=== PATIENT | male | born 1950 | race Caucasian/White ===

== ENCOUNTER 2016-09-22 10:19 | Day surgery (SDC) | payer MEDICARE, BC ==
[~2016-09-22 10:19] MED LIST: RINGERS SOLUTION,LACTATED 1,000 ML IV PRN
--- OUTSIDE RECORDS SUMMARY | 2016-09-22 10:22 | XMS REPORT | Continuity of Care Document ---
:1950 Author Organization [facility] ([facility]) Address [address] [place] [address] Phone [phone] Care Team Providers Name Role Phone Luis Dhillon Primary Care Provider [phone] Source Comments This disclosure is being made pursuant to the Care Everywhere program, applicable federal and state laws, and may not contain all informaitonavailable regarding this patient.[facility] ([facility]) Active Allergies and Adverse Reactions Allergen Noted Date Severity Reactions Comments Iodinated Contrast Media - Oral And Iv Dye 01/28/2015 Anaphylaxis Current Medications Prescription Sig. Disp. Refills Start Date End Date Status AMOXICILLIN 500 mg capsule 01/10/2015 Active CLONAZEPAM 0.5 mg tablet 01/18/2015 Active LYRICA 50 mg capsule 01/12/2015 Active LISINOPRIL-HYDROCHLOROTHIA 01/18/2015 Active ZIDE 20-12.5 mg per tablet DOXAZOSIN 4 mg tablet 01/18/2015 Active calcium carbonate (500 mg Take 1 tablet by Active Ca) 1250 mg -vitamin D 200 mouth 2 times unit per tablet daily cyanocobalamin (VITAMIN Take 1,000 mcg by Active B-12) 1,000 mcg tablet mouth daily omega-3 fatty acids 1 gram Take 2 g by mouth Active capsule 2 times daily diltiazem 120 mg ER Take 120 mg by Active capsule mouth daily omeprazole 10 mg extended Take 10 mg by Active release capsule mouth daily pramipexole 0.125 mg Take 0.125 mg by Active tablet mouth at bedtime SENNOSIDES/DOCUSATE SODIUM Active (SENNA PLUS PO) Active Problems Not on file Social History Tobacco Use Types Packs/Day Years Used Date Former Smoker Cigarettes, Cigars 1 10 Smokeless Tobacco: Never Used Tobacco Cessation:Counseling Given: Yes Comments: Alcohol Use Drinks/Week oz/Week Comments No Last Filed Vital Signs Vital Sign Reading Time Taken Blood Pressure 109/71 01/28/2015 10:23 AM CDT Pulse 79 01/28/2015 10:23 AM CDT Temperature 35.4 C (95.7 F) 01/28/2015 10:23 AM CDT Respiratory Rate - - Height 1.753 m (5' 9.02") 01/28/2015 10:23 AM CDT Weight 90.266 kg (199 lb) 01/28/2015 10:23 AM CDT Body Mass Index 29.37 01/28/2015 10:23 AM CDT Oxygen Saturation - - Plan of Care Health Maintenance Due Date Last Done Comments HCV Screening 1950 Hepatitis B Vaccine (1 of 3 - Primary Series) 1950 Tdap Vaccine 1960 Lipid Disorder Screening 12/13/1967 Td Vaccine 12/13/1967 Colonoscopy 1999 Prostate Cancer Screening 12/13/1999 Zoster Vaccine 2009 Pneumococcal Vaccine (1 of 2 - PCV13) 2014 Influenza Vaccine: Seasonal (Season Ended) 2016 Results from Last 3 Months Not on file
[2016-09-22 13:20] VITALS: BP 128/70
--- NOTE | 2016-09-22 13:34 | OR ---
Operative Report - Dictated Report Narrative: Date: 09/22/2016 Preop: Screening for colon CA Postop: normal colonoscopy Procedure: Total colonoscopy Staff surgeon: Augie Ferrer MD Anesthesia: MAC per [employer] EBL: none Specimen: none Comps: none apparent Description: After informed consent and approopriate sedation the patient was placed in the left lateral decubitus position. A flexible fiberoptic video colonoscope was introduced and advanced under direct vision without difficulty to the cecum. The usual landmarks were identified. Preparation was excellent and excellent views were obtained. The findings were of a normal cecum, ascending colon, hepatic flexure, transverse colon, splenic flexure, descending colon, sigmoid colon, and rectum. The mucosal color, vasculature and texture were normal throughout. Non suspicious masses were seen. The patient tolerated the procedure well without apparent complications and was discharged from the endoscopy suite in stable condition.
== END 2016-09-22 10:20 | disposition home or self-care (01) ==
LOC: AMB 10:19
PROVIDERS: ATTEND Specialist
PROC: 0DJD8ZZ Inspection of Lower Intestinal Tract, Via Natural or Artificial Opening Endoscopic (ICD-10-PCS; principal; 2016-09-22 11:15)
DX: Z12.11 Encounter for screening for malignant neoplasm of colon (principal); I10 Essential (primary) hypertension; F41.9 Anxiety disorder, unspecified; F32.9 Major depressive disorder, single episode, unspecified; M19.90 Unspecified osteoarthritis, unspecified site; F17.200 Nicotine dependence, unspecified, uncomplicated; Z68.29 Body mass index [BMI] 29.0-29.9, adult